=== PATIENT | female | born 1945 | race Caucasian/White ===

== ENCOUNTER 2016-11-19 06:16 | Inpatient (IN) ==
[2016-11-19] MEDS ORDERED: CeFAZolin Pre 2,000 MG/100 ML 2,000 MG/100 ML BAG IVPB ONE (06:39)
[2016-11-19] MEDS ORDERED: Albuterol 2.5 MG/3 ML NEBULIZER IH ONE (06:39)
[2016-11-19] MEDS ORDERED: Vancomycin 1,000 MG in D5% in Water 250 ML IVPB ONE ×4 (06:39→19:00)
[2016-11-19] MEDS ORDERED: Ringers Solution, Lactated 1,000 ML IVC SCH (06:45)
[2016-11-19] MEDS ORDERED: *HR* FentaNYL (PF) 100 MCG/2 ML VIAL ONE (07:13)
[2016-11-19] MEDS ORDERED: *HR* Propofol 200 MG/20 ML VIAL IVP ONE (07:14)
[2016-11-19] MEDS ORDERED: *HR* Midazolam HCl 2 MG/2 ML VIAL ONE (07:14)
[2016-11-19] MEDS ORDERED: Ketamine *HR* 500 MG/10 ML MDV ONE (07:14)
[2016-11-19] MEDS ORDERED: Protamine Sulfate 50 MG/5 ML VIAL IVP ONE (07:18)
[2016-11-19] MEDS ORDERED: Bupivacaine-MPF 0.25% 10 ML VIAL ONE (07:19)
[2016-11-19] MEDS ORDERED: Vancomycin 1,000 MG VIAL ONE (07:20)
[2016-11-19] MEDS ORDERED: Lidocaine 1% 20 ML MDV ONE (07:20)
[2016-11-19] MEDS ORDERED: Heparin 1,000 UNITS/500 mL NS 500 ML ONE ×2 (07:20→07:27)
[2016-11-19] MEDS ORDERED: Lidocaine -MPF 4% 5 ML AMPUL ONE (07:21)
[2016-11-19] MEDS ORDERED: *HR* Succinylcholine 200 MG/10 ML VIAL IVP ONE (07:21)
[2016-11-19] MEDS ORDERED: Lidocaine -MPF 2% 2 ML VIAL ONE ×2 (07:22→07:23)
--- NOTE | 2016-11-19 07:22 | Anesthesia Evaluation PreOp ---
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 HAND History: TIA Other Medical History: GERD Anesthesia History: No Prior Anesthetic Complications, Past Anesthesia ([place], BERTA-BSO, [place] cervical neck cancer(with XRT and Chemo), angiogram), Problems ( slow awakening and emotional) : No Alcohol Use: none Drug use: none Medications and Allergies Clopidogrel [Plavix] 75 mg PO DAILY 07/02/15 [History] Losartan [Cozaar] 25 mg PO BID 07/02/15 [History] Benzonatate [Tessalon] 200 mg PO TID PRN #30 capsule 02/22/16 [Rx] Doxycycline 100 mg PO BID #14 capsule 02/22/16 [Rx] Allergies Penicillins [PCN] Allergy (Verified 06/11/15 14:59) Rash Sulfa (Sulfonamide Antibiotics) Allergy (Verified 02/22/16 12:35) Vomiting - Meds/Allergy Pre-op Review Medications Reviewed: Yes Allergies Reviewed: Yes Beta Blockers on Current Med List: No Anesthesia Results - Labs Laboratory Tests 10/28/16 10/28/16 11/16/16 12:08 12:08 15:12 Hgb 13.8 Hct 42.2 Plt Count 198 PT 11.7 INR 1.1 APTT 32.1 BUN 11 Creatinine 0.85 - Imaging Additional studies: Nuclear stress test: LVEF >70%, negative Anesthesia Exam Selected Entries 11/19/16 06:44 Temperature 97.4 F L Pulse Rate 74 Respiratory Rate 16 Blood Pressure 123/71 O2 Sat by Pulse Oximetry 97 Height: 65in Weight: 186lbs NPO (# of Hours): 8 Pain Scale: 0 Pain Scale Used: Numeric (1 - 10) - HEENT Pupil (Motor): EOMI Mallampati: II Teeth: Missing Oral Opening: Greater than 3 - BRUSH FILLER HAND LOC: Oriented BRUSH FILLER HAND Motor: Normal RUE, Normal LUE, Normal RLE, Normal LLE, Normal Face BRUSH FILLER HAND Sensory: Normal: RUE, LUE, RLE, LLE, Face - Cardiac Rhythm: Regular Murmur: None - Pulmonary Breath Sounds: bilateral Clear Respiratory Effort: Symmetrical Anesthesia Assess/Plan ASA Score: 3 Modified Moira Scale for Level of Consciousness: Cooperative, oriented, and tranquil Anesthetic Plan: General Monitoring Plan: Standard Monitors, A-Line Recovery Plan: PACU (Discussed risks of GA and need for a-line. Questions answered and agrees to proceed.)
[2016-11-19] MEDS ORDERED: Dexmedetomidine HCl 200 MCG/50 ML MLS IVC ONE (07:27)
[2016-11-19] MEDS ORDERED: Acetaminophen IV 1,000 MG/100 ML INFUS..BTL ONE (07:27)
--- NOTE | 2016-11-19 07:38 | History & Physical Report ---
Date of Encounter: 11/19/16 Time of Encounter: 07:25 24 Hour HP Update - Instructions Instructions: If the History and Physical is less than 30 days old and was completed prior to A.M. admission and or procedure and has NOT been updated on calendar day of procedure please complete this update prior to performing procedure. - Update Patient reports changes in Medical Condition: No Changes in examination, assessment, or condition: No Changes in Medication: No Preop tests/diagnostics Reviewed: Yes Surgery Remains Indicated: Yes Consent for Planned Operative Procedure(s) Verified: Yes - Pre-Operative Checklist Preoperative Checklist Indicated: Yes Prophylactic Antibiotic Ordered: Yes (Vancomycin due to MRSA risk/PCN allergy) Home Medications Include Beta Alex: No Beta Alex Taken Today (Day of Surgery): No Beta Alex Taken Yesterday (Day Prior to Surgery): No Is VTE Prophylaxis Indicated?: Yes
[2016-11-19] MEDS ORDERED: *HR* Rocuronium Bromide 50 MG/5 ML VIAL ONE (08:18)
[2016-11-19] MEDS ORDERED: *HR* Phenylephrine 10 MG/ML VIAL ONE (08:23)
[2016-11-19] MEDS ORDERED: Dexamethasone 4 MG/ML VIAL ONE (08:38)
[2016-11-19] MEDS ORDERED: Ondansetron 4 MG/2 ML VIAL ONE (08:38)
[2016-11-19] MEDS ORDERED: *HR* Heparin 5,000 UNIT/ML VIAL ONE ×2 (09:06→11:18)
[2016-11-19] MEDS ORDERED: NiCARdipine 2.5 MG/10 ML Syringe IVPB ONE (09:25)
[2016-11-19] MEDS ORDERED: *HR* Labetalol 20 MG/4 ML SYRINGE IVP PRN ×2 (09:42→12:08)
[2016-11-19] MEDS ORDERED: *HR* HYDROmorphone (PF) 1 MG/ML SYRINGE IVP PRN (09:42)
[2016-11-19] MEDS ORDERED: Ondansetron 4 MG/2 ML VIAL IVP PRN ×2 (09:42→12:08)
[2016-11-19] MEDS ORDERED: Neostigmine Methylsulfate 3 MG/3 ML SYRINGE ONE (11:18)
--- NOTE | 2016-11-19 11:31 | Operative Note ---
Date of procedure: 11/19/16 Pre-op diagnosis: 80-99% Right internal carotid artery stenosis Post-op diagnosis: same Procedure: Right carotid endarterectomy with hemashield patch angioplasty. Complications: None Anesthesia: MAC, local Surgeon: Reggie Timmons Estimated blood loss (cc): 100 Specimen: Right carotid plaque Condition: stable Disposition: PACU Procedure in Detail: Indications: The patient is a 71 year old female with a known history of carotid stenosis who was found to have an 80-99% right internal carotid artery stenosis by duplex examination. A right carotid endarterectomy was recommended to reduce her risk of cerebrovascular accident. Procedure: The patient was identified in the preoperative area. The risks, benefits, and alternatives of the procedure were discussed and all questions were answered. The patient was then taken to the operating room and placed in supine position on the operating table. After induction of general endotracheal anesthesia, the patient was cleaned and draped in normal sterile fashion. A longitudinal incision was made anterior to the right sternocleidomastoid muscle. Hemostasis was obtained via electrocautery. Through a process of blunt , sharp, and electrocautery dissection, the platysma was traversed. The jugular vein was identified. The facial vein was clamped, divided, tied off with a 2-0 silk suture ligature. The jugular vein was then retracted in order to expose the carotid bifurcation. The patient then received 3000 units of heparin intravenously at this time. Proximal dissection of the common and external carotid arteries were performed circumferentially. Dissection of the internal carotid was performed circumferentially. Vessels loops were passed around the internal and external carotid and an umbilical tape was passed from the common carotid artery. The patient received additional 2000 units of heparin intravenously. After waiting adequate time for the heparin to circulate, the vessels were occluded and a longitudinal arteriotomy was made into the common carotid artery extending into the internal carotid beyond the plaque. Vigorous pulsatile retrograde flow was noted from the internal carotid artery upon release of the loop. Due to the vigorous retrograde flow, no shunt was placed. A dental [place] was used to perform a standard endarterectomy. Proximal and distal endpoints were inspected. No elevated flaps were noted. Additional heparin was given throughout the procedure to maintain adequate anticoagulation. A Hemashield patch was cut to fit the arteriotomy defect and sutured in place with running 6-0 Prolene. Prior to completing the closure, each vessel was flushed and then reoccluded. Heparinized saline was infused into the lumen. The patch was completed. Flow was restored in the external carotid artery, followed the common carotid artery, lastly the internal carotid artery was opened. A low resistance arterialized signal was present within the internal carotid artery beyond the patch. Thrombin and Gelfoam were used to aid in hemostasis. Meticulous hemostasis was obtained throughout the wound with electrocautery. Platelet rich and platelet poor plasma were infused into the wounds. The sternocleidomastoid was reapproximated with interrupted 3-0 Vicryl. Platelet rich and platelet poor plasma were infused into the wound. A TLS drain was brought through a separate stab incision and sutured in place with 0 silk suture. The platysma was reapproximated with running 3-0 Vicryl. Local anesthetic was infused in the skin. A 3-0 Monocryl was used to reapproximate the skin. Sterile dressing was applied. The patient was extubated, taken to the recovery room in stable condition.
--- NOTE | 2016-11-19 11:42 | Anesthesia Evaluation Post Op ---
Date of Encounter: 11/19/16 Time of Encounter: 11:41 - Vital Signs Vital Signs: Selected Entries 11/19/16 06:44 11/19/16 11:22 Temperature 97.4 F L 97.3 F L Pulse Rate 62 Respiratory Rate 16 Blood Pressure 109/57 O2 Sat by Pulse Oximetry 99 - Lungs Lungs: Clear Ascult./Percussion - Airway Airway: Non-obstructed - Cardiovascular Regular Rate - Mental Status Mental Status: Alert & Oriented, Answers Appropriately - Pain Pain Scale: 2 Pain Scale used: Numeric (1 - 10) - Nausea Vomiting Nausea Vomiting: Not Present - Hydration Hydration: Ice chips, Witt catheter - Discharge PostOp Status: Transfer Patient to floor
[2016-11-19] MEDS ORDERED: *HR* Morphine 2 MG/ML SYRINGE IVP PRN (12:08)
[2016-11-19] MEDS ORDERED: Aspirin Enteric Coated 81 MG Tablet PO PRN (12:08)
[2016-11-19] MEDS ORDERED: *HR* HYDROcodone/Acet 5/325 mg TABLET PO PRN (12:08)
[2016-11-19] MEDS ORDERED: Acetaminophen 325 MG TABLET PO PRN (12:08)
[2016-11-19] MEDS ORDERED: Naloxone 0.4 MG/ML INJ IVP PRN (12:08)
[2016-11-19] MEDS: *HR* Metoprolol 5 MG/5 ML VIAL IVP SCH ×3 (12:15→23:49)
--- NOTE | 2016-11-19 13:20 | Anesthesia Procedures ---
Date of Encounter: 11/19/16 Time of Encounter: 08:05 Procedures: Anesthesia - Arterial Line Consent obtained: written consent Time out performed: Yes Sedation: Versed (mg): 1 Supplemental Oxygen via Nasal Cannula (L/min): 15 (anesthesia circuit) Local Anesthetic: Lidocaine 1% Amount of Anesthetic used (mls): 1 Size (Gauge): 20 Length (inches): 1 3/4 Technique Used: sterile prep, guide wire technique, direct puncture technique Post-Procedure: line taped into place, dry sterile dressing placed Patient tolerated procedure: well, no complications Complications: none Site: Radial R Vitals: see anesthetic record
[2016-11-19] MEDS: *HR* OxyCODONE Immed Rel 5 MG TABLET PO PRN ×2 (14:29→22:10)
[2016-11-19] MEDS ORDERED: *HR* Heparin 5,000 UNIT/ML VIAL SQ SCH (18:00)
[2016-11-20] MEDS: *HR* Metoprolol 5 MG/5 ML VIAL IVP SCH (05:54)
[2016-11-20] MEDS: *HR* OxyCODONE Immed Rel 5 MG TABLET PO PRN (05:54)
[2016-11-20] MEDS ORDERED: *HR* Heparin 5,000 UNIT/ML VIAL SQ SCH (06:00)
--- NOTE | 2016-11-20 07:15 | Discharge Summary ---
Date of Encounter: 11/20/16 Time of Encounter: 07:35 - Discharge Diagnosis (1) Carotid stenosis, right Priority: Primary Status: Chronic Comments: The patient is postoperative day #1 after right carotid endarterctomy She is alert, comfortable and without neurologic deficits. Her wound is healing. She will be discharged today. (2) Essential hypertension Priority: Secondary Status: Chronic Comments: The patient was counseled regarding atheorsclerotic risk factor reduction. (3) Tobacco abuse Priority: Secondary Status: Chronic Comments: The patient was counseled regarding atheorsclerotic risk factor reduction. - Discharge Medications Prescriptions: HYDROcodone/Acet 5/325 mg [Diller 5-325 mg] 1 tab PO Q4H PRN #25 tablet PRN Reason: POSTOERATIVE PAIN Home Medications: Clopidogrel [Plavix] 75 mg PO DAILY 07/02/15 [History] Losartan [Cozaar] 25 mg PO BID 07/02/15 [History] Aspirin [Lo-Dose Aspirin EC] 81 mg PO DAILY PRN 11/19/16 [History] HYDROcodone/Acet 5/325 mg [Diller 5-325 mg] 1 tab PO Q4H PRN #25 tablet 11/20/16 [Rx] Allergies/Adverse Reactions: Allergies Penicillins [PCN] Allergy (Verified 11/19/16 07:35) Rash ciprofloxacin [From Cipro] Adverse Reaction (Verified 11/19/16 07:35) FEET SWELLING Sulfa (Sulfonamide Antibiotics) Adverse Reaction (Verified 11/19/16 07:35) Vomiting Date of admission: 11/19/16 11:52 Primary care physician: Devyn Friedman Jr, MD Procedure(s) Performed: Right carotid endarterectomy Discharging clinician: Reggie Timmons Anticipated date of discharge: 11/20/16 - Patient Status Disposition: Home, Self-Care Condition: Good Overall status at discharge: patient is back to baseline - Discharge Instructions Follow Up With: Devyn Friedman Jr, MD [Primary Care Provider] - Reggie Timmons MD [Partnered Physician] - 12/30/16 1:50 pm Coby Guerrero CNP [Advanced Practice Nurse] - 11/26/16 9:40 am Additional Instructions: May remove bandage and shower on 11/21/16. Wash wound gently and pat to dry. No driving for [address] Timmons at [phone] with questions or concerns. - Diet and Activity Activity: increase activity as tolerated Diet: advance to your usual diet, low fat, low cholesterol - Hospital Course Hospital course: Ms. Jarrell is a 71 year old female with an 80-99% right internal carotid artery stenosis. She was admitted on 11/19/16 and underwent a right carotid endarterctomy. On postoperative day number one she was alert and without neurologic defits. She was discharged to home in stable condition on postoperative day #1 without complication. Time spent discussing smoking cessation with patient: 3 to 10 minutes - Time Spent with Patient Total time spent providing and/or coordinating discharge services: Exam Vital Signs, Last 4 Hours Temp Pulse Resp BP Pulse Ox 11/20/16 04:31 56 11/20/16 03:44 97.8 F 69 16 139/79 93 General: Present: Conversant, No Apparent Distress HEENT: Present: Trachea midline, Pupils equal Neck: Present: Other (incision clean, dry and intact without erythema or drainage, no hematoma) Lungs: Present: Normal Breath Sounds Neuro: Present: Alert and responsive, No focal deficits noted, Cranial nerves grossly intact, Motor nerves grossly intact, Sensory nerves grossly intact Abdomen: Present: Soft Vascular: Present: Normal capillary refill. Absent: Cyanosis, Edema Skin: Present: No rashes noted on visualized skin - VTE Documentation of Mechanical Device: Graduated compression elastic hosiery
[2016-11-20 07:48] VITALS: BP 124/59
== END 2016-11-20 10:18 | disposition home or self-care (01) | DRG 38 ==
LOC: SAMDAY 06:16 → 2NNU 11:52
PROVIDERS: ADMIT Surgery; ATTEND Surgery

== ENCOUNTER 2021-05-27 13:23 | Observation (INO) ==
[2021-05-27 13:53] LABS: Basophils % 0.5 %; Eosinophils # 0.1 K/mcL (0.0-0.6); Eosinophils % 2.1 %; Hemoglobin 13.4 g/dL (11.5-15.4); Immature Granulocytes % 0.2 % (0-4); Lymphocytes # 1.2 K/mcL (0.6-4.6); Lymphocytes % 20.4 %; Mean Corpuscular HGB Conc 31.9 g/dL (31.6-35.5); Mean Corpuscular Hemoglobin 30.4 pg (28.0-33.3); Mean Corpuscular Volume 95.2 fL (83.0-100.0); Mean Platelet Volume 9.1 fL (9.4-12.4); Monocytes # 0.4 K/mcL (0.0-1.3); Monocytes % 6.2 %; Platelet Count 161 K/mcL (140-400); Red Blood Count 4.41 M/mcL (3.82-4.97); Segmented Neutrophils % 70.6 %; White Blood Count 5.6 K/mcL (4.3-11.1)
[2021-05-27 14:04] LABS: INR 1.1; Prothrombin Time 12.3 Seconds (9.4-12.1)
[2021-05-27 14:13] LABS: BUN/Creatinine Ratio 14 (6-26); Blood Urea Nitrogen 13 mg/dL (8-23); Calcium 9.2 mg/dL (8.6-10.3); Carbon Dioxide 32 mEq/L (23-29); Chloride 101 mEq/L (98-107); Glucose 103 mg/dL (70-105); Osmolality,Calculated 290 (280-300); Potassium 3.8 mEq/L (3.5-5.1); Sodium 140 mEq/L (136-145); eGFR For African Americans > 60 (> 60); eGFR For Non-African Americans 59 (> 60)
[2021-05-27 14:14] LABS: Troponin I < 0.03 ng/mL (< 0.04)
[2021-05-27] MEDS ORDERED: Aspirin Enteric Coated 81 MG Tablet PO PRN (14:29)
[2021-05-27] MEDS ORDERED: Nicotine 2 MG GUM BC PRN (14:33)
[2021-05-27] MEDS ORDERED: Melatonin 3 MG TABLET PO PRN (14:34)
[2021-05-27] MEDS ORDERED: Naloxone 0.4 MG/ML INJ IVP PRN (14:34)
[2021-05-27] MEDS ORDERED: Ondansetron 4 MG/2 ML VIAL IVP PRN (14:34)
[2021-05-27] MEDS ORDERED: Acetaminophen 325 MG TABLET PO PRN (14:34)
[2021-05-27] MEDS ORDERED: Isovue-370 500 ML BOTTLE IVP ONE (15:22)
[2021-05-27] MEDS: carvediloL 6.25 MG TABLET PO SCH (19:47)
[2021-05-28 04:53] LABS: Hematocrit 38.9 % (35.3-44.9); Hemoglobin 12.8 g/dL (11.5-15.4); Mean Corpuscular HGB Conc 32.9 g/dL (31.6-35.5); Mean Corpuscular Hemoglobin 31.4 pg (28.0-33.3); Mean Corpuscular Volume 95.6 fL (83.0-100.0); Mean Platelet Volume 9.3 fL (9.4-12.4); Platelet Count 142 K/mcL (140-400); Red Blood Count 4.07 M/mcL (3.82-4.97); Red Cell Distribution Width 12.9 % (11.5-14.5); White Blood Count 3.8 K/mcL (4.3-11.1)
[2021-05-28 05:29] LABS: BUN/Creatinine Ratio 12 (6-26); Blood Urea Nitrogen 10 mg/dL (8-23); Calcium 8.9 mg/dL (8.6-10.3); Carbon Dioxide 29 mEq/L (23-29); Chloride 106 mEq/L (98-107); Glucose 88 mg/dL (70-105); Magnesium 1.9 mg/dL (1.6-2.6); Osmolality,Calculated 292 (280-300); Sodium 142 mEq/L (136-145); Troponin I < 0.03 ng/mL (< 0.04); eGFR For African Americans > 60 (> 60); eGFR For Non-African Americans > 60 (> 60)
[2021-05-28 05:42] LABS: Thyroid Stimulating Hormone 10.637 mcIU/mL (0.340-5.600)
[2021-05-28] MEDS ORDERED: Regadenoson 0.4 MG/5 ML SYRINGE IVP ONE (06:13)
[2021-05-28] MEDS ORDERED: Levothyroxine 25 MCG TABLET PO SCH (06:30)
[2021-05-28 08:33] VITALS: TEMP 97.8
[2021-05-28] MEDS: carvediloL 6.25 MG TABLET PO SCH (09:18)
[2021-05-28 10:37] VITALS: BP 135/78; PULSE 65; O2SAT 98
[2021-05-29] MEDS ORDERED: Levothyroxine 25 MCG TABLET PO SCH (06:30)
== END 2021-05-28 14:59 | disposition home or self-care (01) ==
LOC: EMEROOARM 13:23 → 3BNU 13:23 → SUATTDRO 17:28 → 3BNU 18:50
PROVIDERS: ADMIT Family Medicine; ATTEND Pharmacist

== ENCOUNTER 2022-01-10 11:25 | Observation (INO) ==
[2022-01-10] MEDS ORDERED: Isovue-370 500 ML BOTTLE IVP ONE (11:51)
[2022-01-10 12:08] LABS: Red Cell Distribution Width 13.8 % (11.5-14.5)
[2022-01-10 12:10] LABS: Mean Platelet Volume 9.6 fL (9.4-12.4)
[2022-01-10 12:13] LABS: Basophils % 0.6 %; Eosinophils # 0.2 K/mcL (0.0-0.6); Eosinophils % 4.7 %; Hematocrit 40.4 % (35.3-44.9); Immature Granulocytes % 0.2 % (0-4); Lymphocytes % 26.9 %; Mean Corpuscular HGB Conc 32.2 g/dL (31.6-35.5); Mean Corpuscular Hemoglobin 30.9 pg (28.0-33.3); Monocytes # 0.4 K/mcL (0.0-1.3); Monocytes % 8.4 %; Neutrophils # 2.7 K/mcL (1.6-8.9); Platelet Count 133 K/mcL (140-400); Red Blood Count 4.21 M/mcL (3.82-4.97); Segmented Neutrophils % 59.2 %; White Blood Count 4.6 K/mcL (4.3-11.1)
[2022-01-10 12:15] LABS: Lymphocytes # 1.2 K/mcL (0.6-4.6)
[2022-01-10 12:16] LABS: INR 1.1; Prothrombin Time 12.5 Seconds (9.4-12.1)
[2022-01-10 12:19] LABS: Activated Partial Thrombo Time 32.1 Seconds (26.0-36.0)
[2022-01-10 12:29] LABS: Alanine Aminotransferase 11 Units/L (7-52); Albumin 4.2 g/dL (3.5-5.7); Albumin/Globulin Ratio 1.8 (1.1-2.2); Alkaline Phosphatase 63 Units/L (34-104); Aspartate Amino Transferase 16 Units/L (13-39); BUN/Creatinine Ratio 19 (6-26); Bilirubin,Direct 0.2 mg/dL (0.0-0.2); Bilirubin,Indirect 0.8 mg/dL (0.0-1.0); Blood Urea Nitrogen 15 mg/dL (8-23); Carbon Dioxide 32 mEq/L (23-29); Chloride 102 mEq/L (98-107); Creatine Kinase 55 Units/L (30-223); Globulin 2.3 g/dL (2.4-3.5); Glucose 73 mg/dL (70-105); Osmolality,Calculated 285 (280-300); Sodium 138 mEq/L (136-145); Total Protein 6.5 g/dL (6.4-8.9); Troponin I < 0.03 ng/mL (< 0.04); eGFR For African Americans > 60 (> 60); eGFR For Non-African Americans > 60 (> 60)
[2022-01-10 12:29] LABS: Bilirubin,Urine Negative (Negative); Blood,Urine Negative (Negative); Clarity,Urine Clear (Clear); Color,Urine Light-Yellow (Yellow); Glucose,Urine (UA) Normal (Normal); Ketones,Urine Negative (Negative); Leukocyte Esterase,Urine Negative (Negative); Nitrite,Urine Negative (Negative); PH,Urine 6.5 pH Units (5.0-8.0); Protein,Urine Negative (Neg-Trace); Specific Gravity,Urine 1.009 (1.010-1.025); Urobilinogen,Urine Normal (Normal)
[2022-01-10] MEDS ORDERED: MOM Conc 10 ML UD.LIQ PO PRN (15:35)
[2022-01-10] MEDS ORDERED: Mag Hydrox/Al Hydrox/Simeth 30 ML UDC PO PRN (15:35)
[2022-01-10] MEDS ORDERED: Melatonin 3 MG TABLET PO PRN (15:35)
[2022-01-10] MEDS ORDERED: Naloxone 0.4 MG/ML INJ IVP PRN (15:35)
[2022-01-10] MEDS ORDERED: Ondansetron ODT 4 MG TAB.RAPDIS SL PRN (15:35)
[2022-01-10] MEDS ORDERED: Perflutren Lipid Microsphere 1.3 ML in 0.9 % Sodium Chloride 8.7 ML IVP PRN (15:37)
[2022-01-11 01:44] LABS: Basophils % 0.5 %; Red Cell Distribution Width 13.6 % (11.5-14.5)
[2022-01-11 01:46] LABS: Eosinophils # 0.2 K/mcL (0.0-0.6); Eosinophils % 5.3 %; Hematocrit 37.6 % (35.3-44.9); Hemoglobin 12.1 g/dL (11.5-15.4); Immature Granulocytes % 0.2 % (0-4); Immature Platelets 2.6 % (1.1-6.1); Lymphocytes # 1.5 K/mcL (0.6-4.6); Lymphocytes % 35.3 %; Mean Corpuscular HGB Conc 32.2 g/dL (31.6-35.5); Mean Corpuscular Hemoglobin 30.5 pg (28.0-33.3); Mean Corpuscular Volume 94.7 fL (83.0-100.0); Mean Platelet Volume 9.7 fL (9.4-12.4); Monocytes # 0.3 K/mcL (0.0-1.3); Monocytes % 7.5 %; Platelet Count 139 K/mcL (140-400); Red Blood Count 3.97 M/mcL (3.82-4.97); Segmented Neutrophils % 51.2 %; White Blood Count 4.2 K/mcL (4.3-11.1)
[2022-01-11 01:52] LABS: Neutrophils # 2.2 K/mcL (1.6-8.9)
[2022-01-11 02:02] LABS: BUN/Creatinine Ratio 18 (6-26); Blood Urea Nitrogen 16 mg/dL (8-23); Calcium 8.7 mg/dL (8.6-10.3); Carbon Dioxide 30 mEq/L (23-29); Chloride 105 mEq/L (98-107); Chol/HDL Ratio 2.2 (0-4.9); Cholesterol 98 mg/dL (< 200); Glucose 87 mg/dL (70-105); HDL Cholesterol 44 mg/dL (40-59); LDL Cholesterol,Calculated 37 mg/dL (< 100); Osmolality,Calculated 291 (280-300); Potassium 3.8 mEq/L (3.5-5.1); Sodium 140 mEq/L (136-145); Triglycerides 86 mg/dL (< 150); eGFR For African Americans > 60 (> 60); eGFR For Non-African Americans > 60 (> 60)
[2022-01-11] MEDS ORDERED: *HR* Enoxaparin 40 MG/0.4 ML SYRINGE SQ SCH (06:00)
[2022-01-11] MEDS ORDERED: Aspirin Enteric Coated 81 MG Tablet PO SCH (09:00)
[2022-01-11 11:28] VITALS: BP 143/86; PULSE 78; TEMP 98.1; O2SAT 94
[2022-01-11 11:41] LABS: Thyroid Stimulating Hormone 6.753 mcIU/mL (0.340-5.600)
== END 2022-01-11 15:30 | disposition home or self-care (01) ==
LOC: 3ANU 11:25 → EMEROOARM 11:25 → SUATTDRO 15:18 → 3ANU 16:27
PROVIDERS: ADMIT Hospitalist; ATTEND Registered Nurse